=== PATIENT | female | born 1940 | race Caucasian/White ===

== ENCOUNTER 2017-08-23 16:52 | Inpatient (IN) | payer MEDICARE, OTHER ==
--- NOTE | 2017-08-23 18:20 | RAD ---
Indication: Altered mental status. Memory loss. Strokelike symptoms. Comparison: April 22, 2017 MRI. Technique: Noncontrast CT vertex of skull through foramen magnum. Report: There is seaman matter white matter obscuration at the RIGHT frontal lobe and more confluent hypodensity at the RIGHT caudate head and subjacent basal ganglia with associated mass effect with partial effacement of the frontal horn of the RIGHT lateral ventricle. Minimal partial sulcal effacement at the RIGHT frontal lobe. No additional region of seaman matter white matter obscuration evident. Negative for intra or extra-axial hemorrhage. Negative for midline shift. Patent basal cisterns. Hypodense structure at the inferior LEFT orbit corresponding with history of prior ocular surgery. Negative for fracture or suspicious focal osseous lesions. IMPRESSION: The constellation of findings is most suspicious for a subacute infarct at the RIGHT frontal lobe with involvement of the anterior limb of the internal capsule and basal ganglia including the caudate head. A mass lesion with vasogenic edema could potentially have a similar appearance. Correlate with clinical assessment and consider follow-up MRI with contrast. April 22, 2017 MRI demonstrated stigmata of advanced chronic small vessel ischemic disease without a mass lesion in the same distribution.
[2017-08-23 18:56] LABS: ABS Basophils 0.1 10^3/ul (0-0.2); ABS Eosinophils 0.1 10^3/ul (0-0.6); ABS Lymphocytes 1.9 10^3/ul (1.0-4.8); ABS Monocytes 0.7 10^3/ul (0-0.8); ABS Neutrophils 4.8 10^3/ul (1.5-7.7); ABS Nucleated RBC 0 10^3/ul; Eosinophil % 1.7 % (0-6); Hematocrit 43 % (35-47); Hemoglobin 14.7 g/dl (12.0-16.0); Lymphocyte % 25.4 % (25-47); Mean Corpuscular HGB Conc 34 g/dl (31-36); Mean Corpuscular Hemoglobin 33 pg (27-31); Mean Corpuscular Volume 95 fL (80-97); Mean Platelet Volume 9 um3 (7.4-10.4); Nucleated Red Blood Cells % 0; Platelet Count 210 10^3/ul (150-450); Red Blood Count 4.54 10^6/ul (4.0-5.4); Red Cell Distribution Width 14 % (10.5-15); White Blood Count 7.5 10^3/ul (3.5-10.8)
--- NOTE | 2017-08-23 19:06 | RAD ---
Indication: Altered mental status. History of LEFT breast cancer. Comparison: February 13, 2015 Technique: Upright AP 1735 hours Report: Elevated lung volumes and rarefaction of upper lung zone interstitial markings. Small calcified pulmonary granulomas without change. No alveolar consolidation, suspicious focal pulmonary lesion, pleural effusion, pneumothorax. The heart, pulmonary vasculature, and mediastinal contours are unremarkable. IMPRESSION: Stigmata of chronic obstructive pulmonary disease and emphysema as well as prior granulomatous disease. No acute cardiopulmonary process evident.
[2017-08-23 19:12] LABS: EGFR Non-African American 69.6 (>60)
[2017-08-23] MEDS ORDERED: Aspirin TAB* 325 MG PO ONE (20:02)
[2017-08-23] MEDS ORDERED: Gadoteridol* (CONTRAST) 279.3 MG/ML 10 ML IV ONE (21:08)
[2017-08-23] MEDS ORDERED: Albuterol HFA INHALER* 8 gm MDI INH PRN (21:11)
[2017-08-23] MEDS ORDERED: hydrALAZINE IV* 20 MG/ML VIAL IV SLOW PU PRN (21:35)
--- NOTE | 2017-08-23 21:53 | RAD ---
Indication: Mental status change/stroke like symptoms with CT remarkable for a probable subacute infarct at the RIGHT frontal lobe with involvement of the anterior limb of the internal capsule and basal ganglia including the caudate head. Comparison: Noncontrast CT of the same date. Technique: GrowBLOX [place] 1.5 Imelda [id number] with GEM suite. MRI brain without and with contrast. 12 mL ProHance administered IV. Report: Corresponding with the well demarcated hypodensity on CT there is a solitary approximate 2.8 cm AP by 2.7 cm transverse focus of restricted diffusion involving the RIGHT lentiform nucleus and caudate head of the basal ganglia and anterior limb of the internal capsule with extension to involve the anterior segment of the posterior limb of the internal capsule. Corresponding decreased signal on ADC map. Mass effect with partial compression of the frontal horn of the RIGHT lateral ventricle. Corresponding hypoenhancement in the region of the dens infarct. No enhancing lesions evident. No intra or extra-axial fluid collection evident. Severe burden of periventricular and subcortical white matter T2 hyperintensities without enhancement or mass effect most consistent with chronic small vessel ischemic disease. Patent basal cisterns. Preserved major intracranial flow-voids. Artifact at the LEFT orbit corresponding with history of previous surgery. Unremarkable calvarium and skull base. Clear paranasal sinuses and mastoid air spaces. IMPRESSION: Restricted diffusion with corresponding decreased signal on ADC map confirms a solitary subacute ischemic infarct at the RIGHT lentiform nucleus and caudate head of the basal ganglia and anterior limb of the internal capsule with extension to involve the anterior segment of the posterior limb of the internal capsule. Mass effect with partial compression of the frontal horn of the RIGHT lateral ventricle. Negative for midline shift or downward herniation.
[2017-08-24] MEDS: Heparin VIAL(*) 5000 UNITS/ML VIAL (FIVE THOUSAND) SUBCUT SCH ×4 (00:17→21:29)
--- NOTE | 2017-08-24 00:24 | HP ---
CC: Dr. Medrano * HISTORY AND PHYSICAL: DATE OF ADMISSION: 08/23/17 PRIMARY CARE PHYSICIAN: Dr. Medrano. ATTENDING PHYSICIAN: Dr. Jorge Mckay * (dictation provided by Sindy Vazquez NP) CHIEF COMPLAINT: Unusual behavior. HISTORY OF PRESENT ILLNESS: Ms. Greenberg is a 76-year-old female with a past medical history of hypertension; hyperlipidemia; mild carotid artery disease; mild coronary artery disease, treated medically, as well as asthma, who presented to the hospital today with concern for unusual behavior per her 's report. On questioning, Ms. Greenberg states that her only symptoms have been that she has been more tired than usual. She feels that this started all about 10 days ago, but became much more acutely worse over the past 3 days. Per her 's report, however, her behavior has been very unusual for her. He notes that she is very precise and likes things done in a very specific way. 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 She does all the finances for the home. She is always precise with timing for appointments and is very meticulous. However, over the past 3 days, she suddenly became very scattered. She missed several appointments and was late. She was not following up with the finances and also was very "laid-back" and not concerned about how the house was arranged. Again, this was an unusual behavior and Mr. Greenberg became concerned that perhaps she had a stroke. There was no evidence of any weakness or other physical abnormality per them. They reviewed this with Dr. Medrano and Dr. Delgado's office and ultimately he was able to convince his to come to the hospital for evaluation. In the emergency room, Ms. Greenberg had a CT which showed concern for a right frontal lobe likely stroke, less likely mass with vasogenic edema. Her labs were unremarkable. Her vital signs show that she is mildly tachycardic, hypertensive with her blood pressure running into the 170s. PAST MEDICAL HISTORY: 1. Hypertension. 2. Hyperlipidemia. 3. Carotid artery disease, mild. 4. Coronary artery disease, mild. 5. Asthma. 6. History of breast cancer, status post lobectomy. 7. GERD. 8. History of inguinal hernia repair. MEDICATIONS: As outpatient are: 1. Budesonide/formoterol 160/4.5 two puffs inhaled b.i.d. 2. Simethicone 180 mg p.o. daily p.r.n. 3. Albuterol inhaler 1 puffs inhaled q.4 hours p.r.n. 4. Atorvastatin 10 mg at bedtime. 5. Calcium carbonate 500 mg p.o. b.i.d. 6. Candesartan 4 mg p.o. daily. 7. Diltiazem 120 mg p.o. daily. 8. Montelukast 10 mg p.o. daily. 9. Multivitamin with mineral 1 tab p.o. daily. 10. Tiotropium 1 cap inhaled daily. ALLERGIES: AMOXICILLIN, AZITHROMYCIN, CLAVULANIC ACID, OXYCODONE, and SULFA. FAMILY HISTORY: Reviewed and noncontributory. SOCIAL HISTORY: No reported tobacco use. The patient drinks about 5 glasses of wine per week. No reported drug use. She lives with her who is her healthcare proxy. She is a retired [employer] employee. REVIEW OF SYSTEMS: A 14-point review of systems was completed with Ms. Greenberg and all those mentioned above were negative except for the fact the patient mentioned that she had some pain in the left side of her neck posteriorly that resolved with a hot shower and Tylenol. No reported headache. PHYSICAL EXAMINATION GENERAL: Ms. Greenberg is sitting in the bed, she is in no acute distress. VITAL SIGNS: Temperature 99.4, pulse rate 56, respiratory rate 19, O2 saturation 95% on room air, and blood pressure 164/67. LUNGS: Clear to auscultation bilaterally. No accessory muscle use and good aeration. HEART: S1 and S2. No murmur, rub, or gallop, and regular. ABDOMEN: Soft and nontender with bowel sounds present x4. EXTREMITIES: No cyanosis or edema. NEURO: She is alert, she is oriented x3. She moves all extremities equally. There is no facial asymmetry or focal weakness. Extraocular movements intact. No ataxia is noted on exam. No nystagmus is noted on exam. SKIN: Intact. DIAGNOSTIC STUDIES/LAB DATA: Sodium 139, potassium 4.3, chloride 103, serum bicarbonate 31, BUN 13, creatinine 0.80, glucose 98, lactic acid 1.1. WBC 7.5, hemoglobin 14.7, hematocrit 43, platelet count 210. EKG shows a sinus rhythm with a heart rate of about 60 with no evidence of ischemia. CT brain shows "the constellation of findings is most suspicious for a subacute infarct at the right frontal lobe with involvement of the anterior limb of the internal capsule and basal ganglia including caudate head. The mass lesion with vasogenic edema could potentially have a similar appearance. Correlate with clinical assessment and consider followup MRI." Chest x-ray shows stigmata of COPD and emphysema and prior granulomatous disease. No acute process. ASSESSMENT AND PLAN: Ms. Greenberg is a 76-year-old female with a past medical history of hypertension, hyperlipidemia, and mild carotid as well as coronary artery disease, who presented to the hospital today with report of unusual scattered less focused behavior per her , found to have subacute infarct in the right frontal lobe versus possible mass with vasogenic edema. The plans are for inpatient admission as expected length of stay would be greater than 2 days for the followin. Altered mental status. Ms. Greenberg is appropriate today, although I appreciate the report received from her that she is acting unusually. There is no neurological deficit noted on my examination. She does have a CT scan as mentioned above. Our plans will be for MRI which has been obtained, but the read is pending. We will continue for now with a stroke workup as it seems this is the most likely diagnosis based on the CT. Plan to monitor on telemetry and the patient will have a transthoracic echocardiogram. She does have a history of hypertension and hyperlipidemia. Plan to continue with blood pressure medication to allow for permissive hypertension with blood pressure up to 180. She will have hydralazine as needed. and continue her home medications. Also plan to continue to treat with statin and aspirin. She will be seeing Dr. Goodwin tomorrow for a neurological consultation. 3. History of hypertension. Continue diltiazem. The patient's is going to bring in candesartan tomorrow. She will have hydralazine as needed. 4. History of asthma. The patient reports she has not been using her albuterol inhaler at all. We will continue her home medications. There is no evidence of acute exacerbation. 5. Code status. Full code. 6. DVT prophylaxis. Heparin subcu. 7. Disposition. To telemetry floor. TIME SPENT: About 60 minutes was spent on the admission of this patient, more than half the time spent with the patient at the bedside reviewing the events leading up to this hospitalization, performing the physical examination, and reviewing my plan of care. SINDY VAZQUEZ NP [id number]/[facility] #: [id number] LEXIS
[2017-08-24] MEDS: Tiotropium CAP.INH* CAP.INH/18 MCG (USE ORDER SET !) INH SCH (07:35)
[2017-08-24] MEDS: Valsartan TAB* 40 MG PO SCH (08:36)
[2017-08-24] MEDS: Diltiazem CD CAP* 120 MG PO SCH (08:37)
[2017-08-24] MEDS: Calcium Carbonate CHEW TAB* 500 MG (TUMS) PO SCH ×2 (08:37→21:28)
[2017-08-24] MEDS: Montelukast Sodium TAB* 10 MG PO SCH (08:37)
[2017-08-24] MEDS: Multivitamins/Minerals TAB PO SCH (08:37)
[2017-08-24] MEDS ORDERED: Spiriva Inhaler DEVICE* 1 EACH DEVICE INH ONE (09:00)
[2017-08-24] MEDS ORDERED: Aspirin TAB* 325 MG PO SCH (09:00)
--- NOTE | 2017-08-24 09:39 | PN ---
Subjective Date of Service: 08/24/17 Interval History: Patient seen and examined at bedside. Denies fever, chills, shortness of breath , chest discomfort, N/V/D. Pt denies focal weakness, but feels "shaky". Tele: Sinus julien, rate 50's with PVCs. Family History: Unchanged from Admission Social History: Unchanged from Admission Past Medical History: Unchanged from Admission Objective Active Medications: Albuterol (Ventolin Hfa Inhaler*) 1 puff INH Q4H PRN Reason: SOB/WHEEZING Aspirin (Aspirin Tab*) 325 mg PO DAILY ROMAN Atorvastatin Calcium (Lipitor*) 10 mg PO BEDTIME ROMAN Calcium Carbonate (Tums*) 500 mg PO BID ROMAN Diltiazem HCl (Cardizem Cd Cap*) 120 mg PO DAILY ROMAN Heparin Sodium (Porcine) (Heparin Vial(*)) 5,000 units SUBCUT Q8HR ROMAN Hydralazine HCl (Apresoline Iv*) 5 mg IV SLOW PU Q6H PRN Reason: SBP > 185 Montelukast Sodium (Singulair Tab*) 10 mg PO DAILY ROMAN Multivitamins/Minerals (Theragran/Minerals Tab*) 1 tab PO DAILY ROMAN Tiotropium [place] (Spiriva Cap.Inh*) 1 cap INH DAILY ROMAN Valsartan (Diovan Tab*) 20 mg PO DAILY ROMAN Vital Signs - 8 hr 08/24/17 08/24/17 08/24/17 04:04 04:11 07:30 Temperature 97.6 F 97.8 F Pulse Rate 50 52 Respiratory 18 18 Rate Blood Pressure 179/76 164/86 187/81 (mmHg) O2 Sat by Pulse 94 96 Oximetry 08/24/17 08/24/17 08/24/17 07:35 08:00 09:28 Temperature Pulse Rate 80 Respiratory 16 Rate Blood Pressure 153/72 (mmHg) O2 Sat by Pulse Oximetry Oxygen Devices in Use Now: None Appearance: NAD, sitting up in bed Ears/Nose/Mouth/Throat: Mucous Membranes Moist Respiratory: Symmetrical Chest Expansion and Respiratory Effort, Clear to Auscultation Cardiovascular: NL Sounds; No Murmurs; No JVD, RRR Abdominal: NL Sounds; No Tenderness; No Distention Extremities: No Edema Skin: No Rash or Ulcers Neurological: Alert and Oriented x 3, NL Muscle Strength and Tone, - - Smile symmetric, tongue midline, hand display director equal Lines/Tubes/Other Access: Clean, Dry and Intact Peripheral IV - site benign Nutrition: Taking PO's Result Diagrams: 08/23/17 18:39 08/23/17 18:39 Diagnostic Imaging: Brain CT 08/23/17 - IMPRESSION: The constellation of findings is most suspicious for a subacute infarct at the RIGHT frontal lobe with involvement of the anterior limb of the internal capsule and basal ganglia including the caudate head. A mass lesion with vasogenic edema could potentially have a similar appearance. Correlate with clinical assessment and consider follow-up MRI with contrast. April 22, 2017 MRI demonstrated stigmata of advanced chronic small vessel ischemic disease without a mass lesion in the same distribution. MRI Brain 08/23/17 - IMPRESSION: Restricted diffusion with corresponding decreased signal on ADC map confirms a solitary subacute ischemic infarct at the RIGHT lentiform nucleus and caudate head of the basal ganglia and anterior limb of the internal capsule with extension to involve the anterior segment of the posterior limb of the internal capsule. Mass effect with partial compression of the frontal horn of the RIGHT lateral ventricle. Negative for midline shift or downward herniation. Assess/Plan/Problems-Billing Assessment: Ms. Greenberg is a 76 yo female with PMH significant for HTN, HLD, mild carotid and coronary artery disease who presented to the hospital with behavior changes and was found to have a subacute infarct in the right frontal lobe vs possible mass with vasogenic edema. - Patient Problems (1) CVA (cerebral vascular accident) Code(s): I63.9 - CEREBRAL INFARCTION, UNSPECIFIED SNOMED Code(s): 002819132 Comment: - MRI - Subacute ischemic infarct with mass effect with partial compression of the frontal horn of the RIGHT lateral ventricle - Neurology consult, pending - Echo pending - Continue neuro checks - Continue ASA and statin (2) HTN (hypertension) Code(s): I10 - ESSENTIAL (PRIMARY) HYPERTENSION SNOMED Code(s): 32520389 Comment: - SBP 100-180's - Continue diltiazem and candesartan ([facility] autosub) - Continue Hydralazine PRN (3) Asthma Code(s): J45.909 - UNSPECIFIED ASTHMA, UNCOMPLICATED SNOMED Code(s): 539152694 Comment: - No signs of acute exacerbation - Continue albuterol PRN, spiriva, and montelukast (4) HLD (hyperlipidemia) Code(s): E78.5 - HYPERLIPIDEMIA, UNSPECIFIED SNOMED Code(s): 10154796 Comment: - Check fasting lipids in the AM - Continue Statin (5) CAD (coronary artery disease) Code(s): I25.10 - ATHSCL HEART DISEASE OF [place] CORONARY ARTERY W/O ANG PCTRS SNOMED Code(s): 93156565 Comment: - Continue statin and ASA (6) GERD (gastroesophageal reflux disease) Code(s): K21.9 - GASTRO-ESOPHAGEAL REFLUX DISEASE WITHOUT ESOPHAGITIS SNOMED Code(s): 512670357 Comment: (7) DVT prophylaxis Code(s): AJM5793 - SNOMED Code(s): 335643566 Comment: - Continue Heparin SQ (8) Full code status Code(s): Z78.9 - OTHER SPECIFIED HEALTH STATUS SNOMED Code(s): 938508731 Status and Disposition: Inpatient. Discharge to home when medically stable.
--- NOTE | 2017-08-24 15:49 | ECHO ---
Patient: VALERIE WHEELER [facility] Rec#: [id number] : 1940 Date: 08/24/2017 Age: 76y Height: 167.64 cm / 66.0 in Weight: 61.23 kg / 135.0 lbs Sex: F BSA: 1.69 Room#: 436 Admit Date#: 08/23/2017 Type: Inpatient Referring: Chandni Monzon NP Reading: Marbella Delgado MD Plant Mechanic: Chandni Hull RDCS CC: Rory Medrano MD Transthoracic Echocardiogram Indication: CVA BP: 164/86 HR: 54 Rhythm: Bradycardia Findings History: Mild CAD, HTN, HLD, asthma. Technical Comments: The study quality is fair. Completed at 1415. Left Ventricle: The left ventricular chamber size is normal. There is no left ventricular hypertrophy. Global left ventricular wall motion and contractility are within normal limits. There is normal left ventricular systolic function. The estimated ejection fraction is 55-60%. There is no consistent Doppler evidence of clinically significant diastolic dysfunction. Left Atrium: The left atrium is mildly dilated. Right Ventricle: Moderator Band present. The right ventricular cavity size is normal. The right ventricular global systolic function is normal. Right Atrium: The right atrial cavity size is normal. Interatrial septum appears intact without evidence of shunting. The bubble study is negative. A patent foramen ovale is not demonstrated with color Doppler and agitated contrast. Aortic Valve: The aortic valve is trileaflet. The aortic valve leaflets are mildly thickened. There is no evidence of aortic stenosis. Mitral Valve: The mitral valve leaflets do not appear thickened. There is a trace of mitral regurgitation. There is no evidence of mitral stenosis. Tricuspid Valve: The tricuspid valve leaflets are normal. There is trace tricuspid regurgitation. Unable to estimate the right ventricular systolic pressure. There is no tricuspid stenosis. Pulmonic Valve: The pulmonic valve appears normal. There is a trace pulmonic regurgitation. There is no pulmonic stenosis. Pericardium: There is no significant pericardial effusion. Aorta: There is no dilatation of the ascending aorta. There is no dilatation of the aortic arch. The aortic root is normal in size. Pulmonary Artery: The main pulmonary artery is not well visualized. Venous: The inferior vena cava appears normal in size. There is a greater than 50% respiratory change in the inferior vena cava dimension. Contrast: Normal saline was used as contrast for the bubble study. Intravenous contrast was used to help determine presence of intracardiac shunting. Conclusions Global left ventricular wall motion and contractility are within normal limits. The estimated ejection fraction is 55-60%. The right ventricular global systolic function is normal. Interatrial septum appears intact without evidence of shunting, bubble study is negative. The aortic valve leaflets are mildly thickened with normal function. There is a trace of mitral regurgitation. There is trace tricuspid regurgitation. Unable to estimate the right ventricular systolic pressure. Compared with prior echo of 07/15/14, stable. Measurements Name Value Normal Range RVIDd (AP) 2D 2.7 cm (0.9 - 2.6) RVDdMajor (2D) 3.8 cm (2.2 - 4.4) RAd ISD 4CH 4.7 cm (3.4 - 4.9) RA (A4C)W 3.8 cm (2.9 - 4.6) IVSd (2D) 0.9 cm (0.6 - 1) LVPWd (2D) 0.7 cm (0.6 - 1) LVIDd (2D) 3.6 cm (3.6 - 5.4) LVIDs (2D) 2.3 cm - LV FS (2D) 34 % (25 - 45) Aortic Annulus 1.7 cm (1.4 - 2.6) Ao root diameter (2D) 2.9 cm (2.1 - 3.5) Ascending Ao 2.8 cm (2.1 - 3.4) Aortic arch 1.9 cm (1.8 - 3.4) LA dimension (AP) 2D 2.8 cm (2.3 - 3.8) LAd ISD 4CH 5.9 cm (2.9 - 5.3) LA ISD 4CH W 3.6 cm (2.5 - 4.5) Name Value Normal Range LA ESV SP 4CH (A/L) 53 ml - LA ESV SP 2CH (A/L) 58 ml - LA ESV BP (A/L) 57 ml - LA ESV BP (A/L) index 33 ml/m2 - LA ESV SP 4CH (MOD) 50 ml - LA ESV SP 2CH (MOD) 56 ml - Name Value Normal Range MV E-wave Vmax 0.7 m/sec - MV deceleration time 289.7 msec - MV A-wave Vmax 0.73 m/sec - MV E:A ratio 0.98 ratio - LV septal e' Vmax 0.08 m/sec - LV lateral e' Vmax 0.1 m/sec - LV E:e' septal ratio 8.75 ratio - LV E:e' lateral ratio 7 ratio - Name Value Normal Range AV Vmax 1.5 m/sec - AV VTI 30.72 cm - AV peak gradient 8.88 mmHg - AV mean gradient 4.66 mmHg - LVOT Vmax 1.1 m/sec - LVOT VTI 21.24 cm - LVOT peak gradient 4.79 mmHg - LVOT mean gradient 2.46 mmHg - BERTHA Vmax 0.53 m/sec - Name Value Normal Range IVC diameter 1.9 cm - Name Value Normal Range PV Vmax 0.84 m/sec - PV peak gradient 2.87 mmHg -
[2017-08-24] MEDS ORDERED: Iohexol 350* (CONTRAST) 500 ML MDV IV ONE (18:36)
[2017-08-24] MEDS ORDERED: Atorvastatin* 10 MG TAB PO SCH (21:00)
--- NOTE | 2017-08-24 23:14 | CONS ---
NEUROLOGY CONSULTATION: DATE OF CONSULT: 08/24/17 REQUESTING PROVIDER: Sindy Vazquez NP REASON FOR CONSULT: Right frontal stroke. 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 Apparently, she is typically very precise and like things done in a specific way. She is typically very on time for appointments and on top of what needs to be done. Over the past several days, she became scattered, missing several appointments and was late to others. She was not following up with her finances as she normally does and seemed less concerned about how her home is kept. All of this was very out of character for her. She also states that she felt more fatigued in general but had attributed this to having a busy weekend watching [employer]. After consulting with Dr. Delgado's office, it was recommended that she come to the hospital for evaluation. A CT scan of the brain suggested the presence of a subacute ischemic infarction involving the right subcortical frontal region with some associated mass effect. There was some question as to whether this could be an underlying mass and so I recommended following this up with an MRI scan of the brain with and without contrast. Today, she states that she feels pretty well and is feeling better, which she attributes to being up and moving around the unit. She denies any past history of stroke. She denies any episodes of weakness or numbness in her extremities, no facial asymmetry, no speech difficulties, no swallowing problems and no balance difficulties. She has had no recent vision changes either. PAST MEDICAL HISTORY: 1. Hypertension. 2. Hyperlipidemia. 3. Carotid artery disease. 4. Coronary artery disease. 5. Asthma. 6. History of lumpectomy. 7. GERD. 8. Hernia repair. 9. History of eye surgery. HOME MEDICATIONS: 1. Aspirin 81 mg daily. 2. Diltiazem 120 mg daily. 3. Spiriva. 4. Simethicone. 5. Multivitamins. 6. Singulair 10 mg daily. 7. Candesartan 4 mg daily. 8. Calcium carbonate 500 mg twice daily. 9. Symbicort twice daily. 10. Lipitor 10 mg at bedtime. 11. Ventolin as needed. ALLERGIES: AMOXICILLIN, AZITHROMYCIN, CLAVULANIC ACID, OXYCODONE, and SULFA. FAMILY HISTORY: Her mother reportedly of a brain hemorrhage in her 40s. The patient thinks that she had an aneurysm. Her father had hypertension and of myocardial infarction. SOCIAL HISTORY: She is a nonsmoker. Drinks about 5 glasses of wine per week. She lives with her . REVIEW OF SYSTEMS: A 14-point review was otherwise negative aside from that mentioned in the HPI. PHYSICAL EXAMINATION: Vital Signs: Temperature 98.1, blood pressure 170/71, heart rate 55, oxygen saturation 95% on room air. On general examination, she is a pleasant woman, in no acute distress. When I initially entered the room, she was ambulating to the bookcase to retrieve her purse and her balance appeared normal. Her cardiac exam shows a regular rate and rhythm with no murmurs, rubs, or gallops. Lungs are clear to auscultation bilaterally. There are no carotid bruits. Her skin is intact. There is no joint swelling or erythema. On neurologic examination, she is fully awake, alert, and oriented. She was able to read the stroke cards without difficulty. She had no naming difficulties. On cranial nerve exam, pupils are equal, round, and reactive from 3 to 2 mm bilaterally. Versions are full without nystagmus. Doherty are full to confrontation. Facial sensation and musculature is full and symmetric. Hearing is intact to finger rub. The palate elevates symmetrically. The tongue is midline. On motor examination, she has normal bulk and tone in the upper and lower extremities. Strength is full proximally and distally with no pronator drift. Sensation is intact to light touch and temperature in the upper and lower extremities. [id number]-[id number] and [id number]-ax-[id number] are without ataxia. Reflexes are 2+ in the upper extremities, 1+ at the knees, absent ankles with downgoing toes. LABORATORY DATA/DIAGNOSTIC STUDIES: Her CBC is overall unremarkable as is her CMP. Her fasting lipid profile is pending. Brain CT was personally reviewed, which shows an area of hypodensity involving the right caudate head as well as the basal ganglia with some associated mass effect on the right frontal horn, but there is no midline shift. Followup MRI scan confirmed this to be an area of subacute stroke, which was DWI bright and dark on the ADC map, which dates it to within the past 2 weeks. In addition to this, she has evidence of good amount of small vessel ischemic disease including in the brain stem and subcortical white matter bilaterally. IMPRESSION: Namrata Greenberg is a 76-year-old woman with vascular risk factors including coronary artery disease, hypertension, hyperlipidemia, on aspirin 81 mg daily who presented subacutely with a right frontal subcortical stroke. This presented only with behavioral changes and she has no hemiparesis or other focal neurologic deficits as a result of the stroke. She has been admitted for stroke workup. She has had echocardiogram and the result is pending. She has lipid profile ordered and I have added a hemoglobin A1c. She is going to have a carotid ultrasound, which I have also ordered. She remains on telemetry. At this point, I will discontinue her aspirin and change her over to clopidogrel given that she was taking aspirin prior to her admission. Thank you for this consultation. [id number]/[facility] #: [id number] LEXIS
[2017-08-25] MEDS: Heparin VIAL(*) 5000 UNITS/ML VIAL (FIVE THOUSAND) SUBCUT SCH ×2 (05:30→14:24)
--- NOTE | 2017-08-25 08:12 | RAD ---
HISTORY: Stroke COMPARISONS: Head CT dated August 23, 2017. TECHNIQUE: Multiple contiguous axial CT scans were obtained of the head and neck after the administration of nonionic intravenous contrast timed to the systemic arterial phase of contrast enhancement. Coronal and sagittal multiplanar reformations are submitted for review. Multiple 3-D maximum intensity projection reconstructions are also submitted for review. FINDINGS: CTA NECK: AORTIC ARCH: The aortic arch is not completely visualized within the [id number] the current examination. There is no proximal stenosis of the cephalic great vessels. RIGHT VERTEBRAL ARTERY: The right vertebral artery is patent along its course, without stenosis. LEFT VERTEBRAL ARTERY: The left vertebral artery is patent along its course, without stenosis. DOMINANCE: The right vertebral artery is dominant. RIGHT COMMON CAROTID ARTERY: The right common carotid artery is patent. The right carotid bifurcation occurs at C4-C5 RIGHT INTERNAL CAROTID ARTERY: There is atheromatous disease of the right carotid bifurcation, without right internal carotid artery stenosis by NASCET criteria. RIGHT EXTERNAL CAROTID ARTERY: The right external carotid artery is unremarkable. LEFT COMMON CAROTID ARTERY: The left common carotid artery is patent. The left carotid bifurcation occurs at C5-C6 LEFT INTERNAL CAROTID ARTERY: There is no left internal carotid artery stenosis by NASCET criteria. LEFT EXTERNAL CAROTID ARTERY: The left external carotid artery is unremarkable. VENOUS CIRCULATION: The venous system is unremarkable. SALIVARY GLANDS: The parotid glands, submandibular glands, sublingual glands are normal. NASAL CAVITY/NASOPHARYNX: The nasal cavity and nasopharynx are normal. ORAL CAVITY/OROPHARYNX: The oral cavity is obscured by streak artifact from dental amalgam. The visualized oral cavity and oropharynx are unremarkable. LARYNGEAL APPARATUS/HYPOPHARYNX: The laryngeal apparatus and hypopharynx are normal. UPPER AIRWAY/UPPER ESOPHAGUS: The visualized upper airway and esophagus are normal. LUNG APICES: The lung apices are clear. THYROID GLAND: The thyroid gland is normal. LYMPH NODES: There is no lymphadenopathy by size criteria. BONES AND SOFT TISSUES: Degenerative changes are noted of the spine. 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 CTA HEAD: INTRACRANIAL CIRCULATION: There is no aneurysm, vascular malformation, occlusion, or stenosis of the visualized intracranial circulation. The anterior communicating artery complex is diminutive. Bilateral posterior communicating arteries are identified. VENOUS CIRCULATION: A linear defect in the left transverse sinus is felt to represent mixing artifact from the phase of contrast administration. PERFUSION: There is no obvious parenchymal perfusion deficit. HEMORRHAGE/INFARCT: There is hypoattenuation of the right lentiform nuclei extending to the caudate head consistent with subacute nonhemorrhagic infarct as noted on the previous examination. Elsewhere, there is no hemorrhage or acute infarct. MASSES/SHIFT: There is no mass or shift. EXTRA-AXIAL SPACES: There are no extra-axial fluid collections. SULCI AND VENTRICLES: The sulci and ventricles are normal in size and position for the patient's stated age. CEREBRUM: There is hypoattenuation of the periventricular and subcortical white matter. BRAINSTEM: There are no focal parenchymal abnormalities. CEREBELLUM: There are no focal parenchymal abnormalities. PARANASAL SINUSES: The paranasal sinuses are clear. ORBITS: The patient is status post scleral banding on the left. BONES AND SOFT TISSUE: No bone or soft tissue abnormalities are noted. OTHER: There is no abnormal enhancement. IMPRESSION: 1. SUBACUTE NONHEMORRHAGIC INFARCT OF THE RIGHT BASAL GANGLIA. 2. ATHEROSCLEROSIS. 3. NO INTERNAL CAROTID ARTERY STENOSIS BY NASCET CRITERIA. 4. NO ANEURYSM, VASCULAR MALFORMATION, OCCLUSION, OR STENOSIS OF THE VISUALIZED INTRACRANIAL CIRCULATION.. CPT II Codes: 3100F
[2017-08-25] MEDS: Tiotropium CAP.INH* CAP.INH/18 MCG (USE ORDER SET !) INH SCH (08:35)
[2017-08-25] MEDS: Valsartan TAB* 40 MG PO SCH (09:00)
[2017-08-25] MEDS ORDERED: Clopidogrel TAB* 75 MG PO SCH (09:00)
[2017-08-25] MEDS: Calcium Carbonate CHEW TAB* 500 MG (TUMS) PO SCH (09:01)
[2017-08-25] MEDS: Diltiazem CD CAP* 120 MG PO SCH (09:01)
[2017-08-25] MEDS: Multivitamins/Minerals TAB PO SCH (09:01)
[2017-08-25] MEDS: Montelukast Sodium TAB* 10 MG PO SCH (09:02)
[2017-08-25 16:10] VITALS: BP 125/70
--- NOTE | 2017-08-25 16:23 | PN ---
Subjective Date of Service: 08/25/17 Interval History: Patient seen and examined at bedside. Denies fever, chills, shortness of breath , chest discomfort, N/V/D. Pt states that she is feeling well. Tele: Sinus Maurizio to sinus rhythm, rate 50's. Pt noted to have a short burst of SVT earlier today. Family History: Unchanged from Admission Social History: Unchanged from Admission Past Medical History: Unchanged from Admission Objective Active Medications: Albuterol (Ventolin Hfa Inhaler*) 1 puff INH Q4H PRN Reason: SOB/WHEEZING Atorvastatin Calcium (Lipitor*) 20 mg PO BEDTIME ROMAN Calcium Carbonate (Tums*) 500 mg PO BID ROMAN Clopidogrel Bisulfate (Plavix Tab*) 75 mg PO DAILY ROMAN Diltiazem HCl (Cardizem Cd Cap*) 120 mg PO DAILY ROMAN Heparin Sodium (Porcine) (Heparin Vial(*)) 5,000 units SUBCUT Q8HR ROMAN Hydralazine HCl (Apresoline Iv*) 5 mg IV SLOW PU Q6H PRN Reason: SBP > 185 Montelukast Sodium (Singulair Tab*) 10 mg PO DAILY ROMAN Multivitamins/Minerals (Theragran/Minerals Tab*) 1 tab PO DAILY ROMAN Tiotropium Walker (Spiriva Cap.Inh*) 1 cap INH DAILY ROMAN Valsartan (Diovan Tab*) 20 mg PO DAILY ROMAN Vital Signs - 8 hr 08/25/17 08/25/17 11:43 15:51 Temperature 98.8 F 98.6 F Pulse Rate 52 56 Respiratory 18 16 Rate Blood Pressure 153/72 125/70 (mmHg) O2 Sat by Pulse 94 96 Oximetry Oxygen Devices in Use Now: None Appearance: NAD, laying in bed Ears/Nose/Mouth/Throat: Mucous Membranes Moist Respiratory: Symmetrical Chest Expansion and Respiratory Effort, Clear to Auscultation Cardiovascular: NL Sounds; No Murmurs; No JVD, RRR Abdominal: NL Sounds; No Tenderness; No Distention Extremities: No Edema Skin: No Rash or Ulcers Neurological: Alert and Oriented x 3, NL Muscle Strength and Tone Lines/Tubes/Other Access: Clean, Dry and Intact Peripheral IV - site benign Nutrition: Taking PO's Result Diagrams: 08/23/17 18:39 08/23/17 18:39 Diagnostic Imaging: Brain CT 08/23/17 - IMPRESSION: The constellation of findings is most suspicious for a subacute infarct at the RIGHT frontal lobe with involvement of the anterior limb of the internal capsule and basal ganglia including the caudate head. A mass lesion with vasogenic edema could potentially have a similar appearance. Correlate with clinical assessment and consider follow-up MRI with contrast. April 22, 2017 MRI demonstrated stigmata of advanced chronic small vessel ischemic disease without a mass lesion in the same distribution. MRI Brain 08/23/17 - IMPRESSION: Restricted diffusion with corresponding decreased signal on ADC map confirms a solitary subacute ischemic infarct at the RIGHT lentiform nucleus and caudate head of the basal ganglia and anterior limb of the internal capsule with extension to involve the anterior segment of the posterior limb of the internal capsule. Mass effect with partial compression of the frontal horn of the RIGHT lateral ventricle. Negative for midline shift or downward herniation. CTA HEAD 08/24/17 - IMPRESSION: SUBACUTE NONHEMORRHAGIC INFARCT OF THE RIGHT BASAL GANGLIA. ATHEROSCLEROSIS. NO INTERNAL CAROTID ARTERY STENOSIS BY NASCET CRITERIA. NO ANEURYSM, VASCULAR MALFORMATION, OCCLUSION, OR STENOSIS OF THE VISUALIZED INTRACRANIAL CIRCULATION. Assess/Plan/Problems-Billing Assessment: Ms. Greenberg is a 76 yo female with PMH significant for HTN, HLD, mild carotid and coronary artery disease who presented to the hospital with behavior changes and was found to have a subacute infarct in the right frontal lobe vs possible mass with vasogenic edema. - Patient Problems (1) CVA (cerebral vascular accident) Code(s): I63.9 - CEREBRAL INFARCTION, UNSPECIFIED SNOMED Code(s): 359496275 Comment: - MRI - Subacute ischemic infarct with mass effect with partial compression of the frontal horn of the RIGHT lateral ventricle - Neurology consult, input appreciated - Echo with no significant findings - Head/neck CTA with no significant findings - Continue plavix and statin (increased) (2) HTN (hypertension) Code(s): I10 - ESSENTIAL (PRIMARY) HYPERTENSION SNOMED Code(s): 62880880 Comment: - SBP 120-150's - Continue diltiazem and candesartan ([employer] autosub) (3) Asthma Code(s): J45.909 - UNSPECIFIED ASTHMA, UNCOMPLICATED SNOMED Code(s): 366200005 Comment: - No signs of acute exacerbation - Continue albuterol PRN, spiriva, and montelukast (4) HLD (hyperlipidemia) Code(s): E78.5 - HYPERLIPIDEMIA, UNSPECIFIED SNOMED Code(s): 33775756 Comment: - LDL 87, cholesterol 160 - Continue increase statin to 40 mg daily (5) CAD (coronary artery disease) Code(s): I25.10 - ATHSCL HEART DISEASE OF [place] CORONARY ARTERY W/O ANG PCTRS SNOMED Code(s): 81122991 Comment: - Continue statin and plavix (6) GERD (gastroesophageal reflux disease) Code(s): K21.9 - GASTRO-ESOPHAGEAL REFLUX DISEASE WITHOUT ESOPHAGITIS SNOMED Code(s): 251696576 Comment: (7) DVT prophylaxis Code(s): OEP2360 - SNOMED Code(s): 345343540 Comment: (8) Full code status Code(s): Z78.9 - OTHER SPECIFIED HEALTH STATUS SNOMED Code(s): 172877840 Status and Disposition: Inpatient. Stable for discharge to home today.
[2017-08-25] MEDS ORDERED: Atorvastatin* 20 MG TAB PO SCH (21:00)
--- NOTE | 2017-08-26 08:44 | PN ---
FOLLOWUP NOTE: DATE OF FOLLOWUP: 08/25/17 LOCATION: The patient is an inpatient. HISTORY: No acute overnight events. I discussed the patient with Dr. Delgado yesterday afternoon and found that the results of the carotid ultrasound that the patient and had told me about done in Dr. Delgado's office and [place] [facility] [place] why [place] be located in her hospital medical record. Therefore, a CT angiogram of the head and neck was ordered for further evaluation, especially given her past complaints of pulsatile tinnitus. Today, Ms. Greenberg says that she feels well and has had no changes in her clinical status. MEDICATIONS: 1. Lipitor 10 mg at bedtime. 2. Tums 500 mg twice daily. 3. Clopidogrel 75 mg daily. 4. Cardizem 120 mg daily. 5. Heparin 5000 units q. 8 hours. 6. Singulair 10 mg daily. 7. Multivitamin 1 tablet daily. 8. Spiriva 1 capsule daily. 9. Diovan 20 mg daily. PHYSICAL EXAMINATION: Vital Signs: Temperature 97.3, blood pressure 154/72, heart rate 50, oxygen saturation 95% on room air. Ms. Greenberg was lying comfortably in her bed, in no acute distress. Her speech is fluent without dysarthria or aphasia. Her face is symmetric. There is full strength in her face. Versions are full without nystagmus. Doherty are full to threat. There is full strength in her extremities with no pronator drift, though I did note that with outstretched hands she had some athetotic movements of her fingers of the left hand. Sensation is intact to light touch on review of her lower extremities. There is no ataxia on vlgjln-ko-tisp testing. DATA: Her hemoglobin A1c is 5.9%. Fasting lipid profile showed triglycerides 82, total cholesterol 160, LDL 87, HDL 56.4. CT angiogram showed no hemodynamically significant stenosis in the anterior or posterior circulation and no evidence for aneurysm or occlusion. However, there was some atheromatous change at the bifurcation on the right including some calcification, but there was no clearly unstable portion of this plaque and again it did not yield any hemodynamically significant stenosis. Her transthoracic echocardiogram showed no wall motion abnormalities and a normal ejection fraction of 55% to 60%. There is no left ventricular hypertrophy. The left atrium is mildly dilated. There is no PFO visualized. IMPRESSION: Namrata Greenberg is a 76-year-old woman, who came in subacutely with a right frontal subcortical infarction, which has primarily presented with behavioral changes and she continues to demonstrate no focal deficits on her neurologic exam. Her workup at this point is essentially complete, though her CTA does show some atheromatous change of the right carotid bifurcation, there is no indication for surgery at this point since there does not appear to be any unstable plaque and there is no hemodynamically significant stenosis produced by this atherosclerosis. She has been switched over to Plavix and now increased her statin to 20 mg. She should follow up with her PCP on discharge and Dr. Delgado as previously scheduled and she can also follow up with me in about 4 weeks. [id number]/[facility] #: [id number] L[place]IS
--- NOTE | 2017-08-27 16:53 | DS ---
CC: Little Goodwin MD; Rory Medrano MD* DISCHARGE SUMMARY: DATE OF ADMISSION: 08/23/17 DATE OF DISCHARGE: 08/25/17 ATTENDING PHYSICIAN: Diane Fish MD* (dictated by Chandni Dodge NP). PRIMARY CARE PROVIDER: Rory Medrano MD PRIMARY DIAGNOSES: 1. Right frontal cerebrovascular accident. 2. Hyperlipidemia. SECONDARY DIAGNOSES: 1. Hypertension. 2. Asthma. 3. History of coronary artery disease. 4. Gastroesophageal reflux disease. CONSULTATIONS WHILE IN THE HOSPITAL: Dr. Little Goodwin with Neurology. STUDIES WHILE IN THE HOSPITAL: 1. Brain CT on 08/23/17. Radiologist's impression: The consolidation of findings is most suspicious for a subacute infarct at the right frontal lobe with involvement of the anterior limb of the internal capsule and basal ganglia including the caudate head. A mass lesion with vasogenic edema could potentially have a similar appearance. Correlate with clinical assessment and consider followup MRI with contrast. 04/22/17 MRI demonstrated stigmata of advanced chronic small vessel ischemic disease without a mass lesion in the same distribution. 2. Chest x-ray on 08/23/17. Radiologist's impression: Stigmata of chronic obstructive pulmonary disease and emphysema as well as prior granulomatous disease. No acute cardiopulmonary process evident. 3. Brain MRI on 08/23/17. Radiologist's impression: Restricted diffusion with corresponding decreased signal on ADC map confirms a solitary subacute ischemic infarct at the right lentiform nucleus and caudate head of the basal ganglia and anterior limb of the internal capsule with extension to involve the anterior segment of the posterior limb of the internal capsule. Mass effect with partial compression of the frontal horn of the right lateral ventricle. Negative for midline shift or downward herniation. 4. Transthoracic echocardiogram on 08/24/17. Family Development Specialist's conclusion: Global left ventricular wall motion and contractility are within normal limits. The estimated ejection fraction is 55% to 60%. The right ventricular global systolic function is normal. Interarterial septum appears intact without evidence of shunting. Bubble study is negative. The aortic valve leaflets are mildly thickened with normal function. There is a trace of mild regurgitation, trace tricuspid regurgitation. Unable to estimate the right ventricular systolic pressure. Compared with prior echo of 07/15/14, stable. 5. Head and neck CTA on 08/24/17. Radiologist's impression: Subacute nonhemorrhagic infarct of the right basal ganglia. Atherosclerosis. No internal carotid artery stenosis by NASCET criteria. No aneurysm, vascular malformation, occlusion or stenosis of the visualized intracranial circulation. DISCHARGE MEDICATIONS: [place] Medication: Plavix 75 mg oral daily. Changed Home Medication: Atorvastatin increased from 20 mg daily to 40 mg oral daily. Continued Home Medications: 1. Candesartan 8 mg oral daily. 2. Calcium carbonate 500 mg oral twice daily. 3. Simethicone 180 mg daily as needed for constipation. 4. Multivitamin 1 tablet oral daily. 5. Singulair 10 mg oral daily. 6. Diltiazem 120 mg oral daily. 7. Albuterol HFA inhaler 1 puff inhalation every 4 hours as needed for shortness of breath or wheeze. 8. Spiriva 1 capsule inhalation daily. 9. Symbicort 160/4.5 two puffs inhalation twice daily. Discontinued Home Medications: None. HISTORY OF PRESENT ILLNESS/HOSPITAL COURSE: Ms. Greenberg is a 76-year-old female with past medical history significant for hypertension, hyperlipidemia, mild carotid artery disease, coronary artery disease, asthma, history of breast cancer, status post mastectomy, GERD, and inguinal hernia repair, who presented to the emergency room with concerns of unusual behavior per her . According to Mr. Greenberg, the patient who is typically a type A personality has become very laid back and not concerned about the usual things she worries about such as how her house was arranged. This initially started potentially 10 days prior to presentation, but got worse over the 3 days leading up to her arrival. There were no evidence of focal weakness or other abnormalities. Patient's called Dr. Medrano and Dr. Delgado's office and they were recommended to go to the emergency room for further evaluation of her symptoms. While in the emergency room, Ms. Greenberg had a CT of her head showing concern for right frontal lobe possible stroke or less likely a mass with vasogenic edema. She had unremarkable labs. She was mildly tachycardic and hypertensive with systolic blood pressures in the 170s in the emergency room. She had a negative chest x-ray. Hospitalists were asked to evaluate the patient for admission. While in the hospital, patient was seen in consultation by Dr. Little Goodwin. She underwent an MRI of her brain showing a right frontal lobe infarct. She had a head and neck CTA showing atherosclerosis and no internal carotid artery stenosis. No other abnormalities. She had no focal neuro deficits. Fasting lipids revealed elevated LDL at 87, cholesterol of 160. Her statin was increased from 20 to 40 mg. She was also noted to be slightly hypertensive with systolics up to the 170s, but mostly in the 120s to 150s. At the time of her discharge, it was noted that she was taking lower blood pressure medications than her home doses and this was adjusted for discharge. She had an echo without significant findings. She was started on Plavix. Ms. Greenberg is stable for discharge. Vital signs are as follows: Temperature 98.6, heart rate 56, respiratory rate 16, O2 sat 96% on room air, blood pressure 125/70. DISCHARGE PLAN: Ms. Greenberg will be discharged to home. ACTIVITY: As tolerated. DIET: She should be on a heart healthy diet. In regards to her right frontal CVA, she has a followup appointment with Dr. Goodwin on 09/27/17 at 10 a.m. She has been started on Plavix daily and her atorvastatin has been increased to 40 mg daily. She resumed her other usual home medications. She has a followup appointment with her primary care provider , Dr. Rory Medrano, on 09/06/17 at 10:[address] [facility] location. The patient has been asked to return in the emergency room for any shortness of breath, chest discomfort or signs of strokes such as one-sided weakness, slurred speech, facial drooping, or any other behavioral changes that are unexplained. This is a summarized report of a complex medical history and hospital stay. For further details, please see the entire medical record. TIME SPENT: Time for this discharge was approximately 50 minutes, greater than half of that was spent with the patient discussing discharge plans and instructions. CONDITION ON DISCHARGE: Stable. Reviewed by RADHA MORELOS 08/29/17 1858 [id number]/[facility] #: [id number] [place]
== END 2017-08-25 17:46 | disposition home or self-care (01) | DRG 66 ==
LOC: ED 16:52 → MEDTELE 20:22
PROVIDERS: ADMIT Hospitalist; ATTEND Internal Medicine
DX: I63.22 Cerebral infarction due to unspecified occlusion or stenosis of basilar artery (principal); J44.9 Chronic obstructive pulmonary disease, unspecified; I11.9 Hypertensive heart disease without heart failure; I25.10 Atherosclerotic heart disease of native coronary artery without angina pectoris; E78.5 Hyperlipidemia, unspecified; K21.9 Gastro-esophageal reflux disease without esophagitis; I65.29 Occlusion and stenosis of unspecified carotid artery; Z85.3 Personal history of malignant neoplasm of breast; Z79.899 Other long term (current) drug therapy; Z88.1 Allergy status to other antibiotic agents; Z88.5 Allergy status to narcotic agent; Z88.2 Allergy status to sulfonamides; Z88.8 Allergy status to other drugs, medicaments and biological substances
CPT/HCPCS: 36415; 70450; 70496; 70498; 70553; 71045; 80053; 80061; 83036; 83605; 84484; 85025; 93005; 93306; 94640; 94760; 99284; A9270-GY; A9579; J1644; Q9967

== ENCOUNTER 2018-04-15 11:32 | Observation (INO) | payer MEDICARE, OTHER ==
--- NOTE | 2018-04-15 11:57 | ED ---
Dizziness - HPI Summary HPI Summary: This patient is a 77 year old F presenting to [facility] accompanied by her with a chief complaint of dizziness since 08:30. Symptoms aggravated by movement. Symptoms alleviated by lying down. Patient reports vomiting, room- spinning, head feels full, nausea, elevated BP, and BARNES. Patient denies fever, head pain, CP, SOB, or slurred speech. Woke up and felt like she couldnt stand up to go to the bathroom. She also wobbled and almost fell several times. She has not felt like this before. She says it feels like she will fall and cannot walk, when asked to describe her dizziness. In the room, she says the room- spinning is better but her head feels full. Her helped her down the stairs, which she has not needed before. Pt has a 30 day heart monitor on from her elevated guard. Pt reports that this does not feel like the TIA she had in July. Pt took a Plavix this morning, as usual. PMHX TIA in July, blindness in the left eye. No PMHx diabetes. SHX lives near [facility]. RX Plavix. Allergies to Amoxicillin, Azithromycin, Clavulanic acid, Oxycodone, and Sulfa. Rx Singulair 10, Plavix 75, Cardia xt 120, Candesarten 4mg, Atorvastatin 40. Vital signs while in room: HR 51 bpm, BP 194/97. O2 sat 97%. NIH score of 1, Due to preexisting eye deficit of light perception only. Dr. Galicia was in the room at 11:48 Home Medications Medication Instructions Recorded Confirmed Type Candesartan (NF) [Atacand (NF)] 8 mg PO DAILY 04/22/13 08/25/17 History Albuterol HFA INHALER* [Ventolin 1 puff INH Q4H PRN 08/23/17 08/23/17 History HFA Inhaler*] Budesonide/Formote 160/4.5(NF) 2 puff INH BID 08/23/17 08/23/17 History [Symbicort 160/4.5 (NF)] Calcium Carbonate CHEW TAB* [Tums*] 500 mg PO BID 08/23/17 08/23/17 History Montelukast Sodium TAB* [Singulair 10 mg PO DAILY 08/23/17 08/23/17 History 10 MG TAB*] Multivitamins/Minerals TAB* 1 tab PO DAILY 08/23/17 08/23/17 History [Theragran/minerals TAB*] Simethicone [Gas Relief] 180 mg PO DAILY PRN 08/23/17 08/23/17 History Tiotropium CAP.INH* [Spiriva 1 cap.inh INH DAILY 08/23/17 08/23/17 History CAP.INH*] dilTIAZem HCl [Diltiazem 24Hr ER] 120 mg PO DAILY 08/23/17 08/23/17 History Atorvastatin* [Lipitor 40 MG*] 40 mg PO 1700 #30 tab 08/25/17 Rx Clopidogrel TAB* [Plavix TAB*] 75 mg PO DAILY #30 tab 08/25/17 Rx - History Of Current Complaint Chief Complaint: EDDizziness Stated Complaint: DIZZY Time Seen by Provider: 04/15/18 11:48 Hx Obtained From: Patient, Family/Auto Accessories Installer - Last Known Well Date: 829 Onset/Duration: Still Present - has gotten better Timing: Constant Severity Initially: Moderate Severity Currently: Moderate Character: Room Spinning, Dizzy Aggravating Factor(s): Exertion, Position Change Alleviating Factor(s): Lying Down Associated Signs And Symptoms: Positive: Nausea, Vomiting, Unsteady Gait. Negative: Chest Pain, SOB, Fever, Slurred Speech Related History: Similar Episode/Dx as - TIA - Risk Factors CVA Risk Factor: Prior CVA/TIA - Allergies/Home Medications Allergies/Adverse Reactions: Allergies Allergy/AdvReac Type Severity Reaction Status Date / Time amoxicillin [From Augmentin] Allergy Unknown Verified 08/24/17 19:27 Reaction Details azithromycin Allergy Unknown Verified 08/24/17 19:27 Reaction Details clavulanic acid Allergy Unknown Verified 08/24/17 19:27 [From Augmentin] Reaction Details oxycodone AdvReac GI Upset Verified 08/24/17 19:27 Sulfa (Sulfonamide AdvReac Nausea Verified 08/24/17 19:27 Antibiotics) Home Medications: Home Medications Atorvastatin* [Lipitor 40 MG*] 40 mg PO 1700 04/15/18 [History Confirmed ] Candesartan Cilexetil 4 mg PO DAILY 04/15/18 [History Confirmed 04/15/18] Clopidogrel TAB* [Plavix TAB*] 75 mg PO DAILY 04/15/18 [History Confirmed ] Diltiazem XR EXTEND Releas(NF) [Cartia XR (NF)] 120 mg PO DAILY 04/15/18 [ History Confirmed 04/15/18] Montelukast Sodium TAB* [Singulair 5 mg TAB*] 5 mg PO DAILY 04/15/18 [History Confirmed 04/15/18] PMH/Surg Hx/FS Hx/Imm Hx Previously Healthy: No Endocrine/Hematology History: Reports: Hx Anticoagulant Therapy - plavix Denies: Hx Diabetes Cardiovascular History: Reports: Hx Hypercholesterolemia, Hx Hypertension - CONTROL WITH MEDICATION Denies: Hx Congestive Heart Failure, Hx Pacemaker/ICD Respiratory History: Reports: Hx Asthma - USE INHALER GI History: Reports: Hx Gall Bladder Disease, Hx Gastroesophageal Reflux Disease - ACID REFLUX-OCCASIONAL TUMS AND ZANTAC Denies: Other GI Disorders History: Denies: Hx Renal Disease, Other Problems/Disorders Sensory History: Reports: Hx Cataracts - surgery, Hx Contacts or Glasses - reading Denies: Hx Hearing Aid Opthamlomology History: Reports: Hx Cataracts - surgery, Hx Contacts or Glasses - reading Neurological History: Reports: Hx Transient Ischemic Attacks (TIA) - 07/2017, on plavix Psychiatric History: Denies: Hx Panic Disorder - Cancer History Cancer Type, 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 [place] Inguinal her[place] [id number] LEFT [place]GUINAL [place] [facility] [place] Anesthesia Reactions: No - Immunization History Date of Tetanus Vaccine: 2009 Infectious Disease History: No Infectious Disease History: Denies: History Other Infectious Disease, Traveled Outside the [place] in Last 30 Days - Family History Known Family History: Positive: Hypertension - Social History Lives: With Family Alcohol Use: Weekly Substance Use Type: Reports: None Hx Tobacco Use: No Smoking Status (MU): Never Smoked Tobacco Review of Systems Negative: Fever Negative: Chest Pain Negative: Shortness Of Breath Positive: Vomiting, Nausea Musculoskeletal: Negative Skin: Negative Positive: Headache. Negative: Slurred Speech All Other Systems Reviewed And Are Negative: Yes Physical Exam - Summary Physical Exam Summary: Appearance: Well-appearing, moderate pain distress, well-nourished Skin: Warm, color reflects adequate perfusion, dry Head: Normal Head/Face inspection, atraumatic Eyes: Conjunctiva clear, right pupil reactive 2mm, left eye light perception vision only (pre-existing) ENT: Normal inspection Neck: Supple, no nodes, no JVD Respiratory: Lungs clear, normal breath sounds, no respiratory distress Cardio: RRR, No murmur, pulses normal, brisk capillary refill Abdomen: Soft, nontender Bowel sounds: Present Musculoskeletal: Strength Intact/ROM intact, no calf tenderness, no edema. Psychological: Normal Neuro: A&O x3, CN II-XII intact (except light perception only in left eye), motor function 5/5, sensation intact, cerebellar normal GCS: 15 NIH score of 1 due to preexisting eye deficit of light perception only. Dr. aGlicia was in the room at 11:48. Triage Information Reviewed: Yes Vital Signs On Initial Exam: Initial Vitals Temp Pulse Resp BP Pulse Ox 97.2 F 59 16 129/81 97 04/15/18 11:36 04/15/18 11:36 04/15/18 11:36 04/15/18 11:36 04/15/18 11:36 Vital Signs Reviewed: Yes Diagnostics - Vital Signs Vital Signs Temp Pulse Resp BP Pulse Ox 04/15/18 11:36 97.2 F 59 16 129/81 97 - Laboratory Result Diagrams: 04/16/18 05:17 04/16/18 05:17 Lab Statement: Any lab studies that have been ordered have been reviewed, and results considered in the medical decision making process. - Radiology CXR Radiology Interpretation Completed By: Radiologist - CT Brain CT Interpretation Completed By: Radiologist - 1. CHRONIC RIGHT BASAL GANGLIA INFARCT. 2. CHRONIC SMALL VESSEL ISCHEMIC CHANGES. 3. NO ACUTE INTRACRANIAL PATHOLOGY. ED physician has reviewed this report - EKG 11:53 Cardiac Rate: Bradycardia - 52 bpm EKG Rhythm: Sinus Bradycardia ST Segment: Non-Specific Ectopy: PVCs - 2 EKG Interpretation: nml AV/IV CT and nml axis. Ectopy: [address] EKG Comparison: No Significant Change - c/w 08/23/17 National Institutes Of Health - NIH Scale Level of Consciousness: Alert/Keenly Responsive Ask Patient the Month and His/Her Age: Both Correct Ask Pt to Open/Close Eyes and Fusing Furnace Loader/Release Non-Paretic Hand: Both Correctly Best Gaze (Only Horizontal Eye Movement): Normal Visual Field Testing: Partial Hemianopia - left eye with light perception vision only, not new deficit Facial Paresis-Pt to Smile & Close Eyes or Grimace Symmetry: Normal/Symmetrical Motor Function - Right Arm: No Drift-Holds 10 Seconds Motor Function - Left Arm: No Drift-Holds 10 Seconds Motor Function - Right Leg: No Drift-Holds 10 Seconds Motor Function - Left Leg: No Drift-Holds 10 Seconds Limb Ataxia-Must be out of Proportion to Weakness Present: Absent Sensory (Use Pinprick to Test Arms/Legs/Trunk/Face): Normal Best Language (Describe Picture, Name Items): No Aphasia Dysarthria (Read Several Words): Normal Extinction and Inattention: No Abnormality Total Score: 1 Re-Evaluation - Re-Evaluation First Eval Re-Evaluation Time: 13:48 Change: Improved Comment: Pt was sleeping for the last 20 minutes. Pt was informed that her test results are all negative for any new problems. The pt feels less anxious than when she first arrived. Dr. Delgado is supposed to evaluate the heart monitor in about 2 weeks, she wanted to see if anything abnormal was happening at night. Pt reports that her dizziness is improved while in the ED. HR 54 bpm, BP 172/88, O2 96% Second Eval Re-Evaluation Time: 14:36 Change: Unchanged Comment: Discussed admission, remains bradycardic Dizzy Course/Dx - Course Course Of Treatment: This patient is a 77 year old F presenting to [facility] accompanied by her with a chief complaint of dizziness since 08:30. Symptoms aggravated by movement. Symptoms alleviated by lying down. Patient reports vomiting, room-spinning, head feels full, nausea, elevated BP, and BARNES. Patient denies fever, head pain, CP, SOB, or slurred speech. At 12:58 Patient had episode of PVCs but no Afib. An EKG at 11:53 reveals nml AV/IV CT and nml axis. Ectopy: [address] CXR reveals, per radiologist, HYPERINFLATION. NO ACTIVE CARDIOPULMONARY DISEASE. Brain CT reveals 1. CHRONIC RIGHT BASAL GANGLIA INFARCT. 2. CHRONIC SMALL VESSEL ISCHEMIC CHANGES. 3. NO ACUTE INTRACRANIAL PATHOLOGY. ED physician has reviewed this radiology report. In the ED course the patient was given IV fluids. Labs show minimal abnormalities. We discussed patient care with Dr. Horton and he recommended admission to [facility]. Patient will be admitted. The patient is agreeable with this plan. - Diagnoses Differential Diagnosis/HQI/PQRI: Benign Paroxysmal Positional Vertigo, Coronary Artery Disease, CVA, Hypovolemia, Labyrinthitis, Medication Reaction, Metabolic Abnormality, Myocardial Infarction, Transient Ischemic Attack Provider Diagnoses: Orthostatic hypotension, Dizziness, Bradycardia - Provider Notifications Discussed Care Of Patient With: Murray Maria Time Discussed With Above Provider: 14:05 - No futher imaging needed, do not need to call a stroke Discharge - Sign-Out/Discharge Documenting (check all that apply): Patient Departure - admitted - Discharge Plan Condition: Fair Disposition: ADMITTED TO [facility] - Billing Disposition and Condition Condition: FAIR Disposition: Admitted to [facility] - Attestation Statements Document Initiated by Scribe: Yes Documenting Scribe: Dakotah Landaverde Provider For Whom Scribe is Documenting (Include Credential): Lise Galicia MD Scribe Attestation: Dakotah Burciaga, scribed for Lise Galicia MD on 04/18/18 at 2237. Scribe Documentation Reviewed: Yes Provider Attestation: The documentation as recorded by the Dakotah degroot accurately reflects the service I personally performed and the decisions made by wa, Lise Galicia MD Consult Consult: Neida, the pharmacist, recommends that the patient take her own Candesarten at this time, 14:10. Consult with Dr. Horton at 14:13. The patient will be admitted to [facility]. Consult Dr. Maria, no acute neurologic event based on hx provided by me. Dr. Delgado, no acute cardiac abnormality.
--- NOTE | 2018-04-15 12:18 | RAD ---
HISTORY: dizziness, on plavix, hx TIA, COMPARISONS: August 23, 2017 TECHNIQUE: Multiple contiguous axial CT scans were obtained of the head without intravenous contrast. FINDINGS: HEMORRHAGE/INFARCT: There is no hemorrhage or acute infarct. MASSES/SHIFT: There is no mass or shift. EXTRA-AXIAL SPACES: There are no extra-axial fluid collections. SULCI AND VENTRICLES: The sulci and ventricles are normal in size and position for the patient's stated age. CEREBRUM: There is encephalomalacia involving the right caudate consistent with the sequela of the infarct noted on the August 23, 2012 examination. There is hypoattenuation of the periventricular and subcortical white matter.. BRAINSTEM: There are no focal parenchymal abnormalities. CEREBELLUM: There are no focal parenchymal abnormalities. VESSELS: There is calcification of the cavernous segments of the internal carotid arteries bilaterally and of the distal vertebral arteries bilaterally. PARANASAL SINUSES: The paranasal sinuses are clear. ORBITS: The patient is status post scleral banding on the left. BONES AND SOFT TISSUE: No bone or soft tissue abnormalities are noted. OTHER: None IMPRESSION: 1. CHRONIC RIGHT BASAL GANGLIA INFARCT. 2. CHRONIC SMALL VESSEL ISCHEMIC CHANGES. 3. NO ACUTE INTRACRANIAL PATHOLOGY.
[2018-04-15 12:39] LABS: ABS Basophils 0.1 10^3/ul (0-0.2); ABS Eosinophils 0 10^3/ul (0-0.6); ABS Monocytes 0.5 10^3/ul (0-0.8); ABS Neutrophils 8.3 10^3/ul (1.5-7.7); ABS Nucleated RBC 0 10^3/ul; Eosinophil % 0.4 % (0-6); Hematocrit 46 % (35-47); Hemoglobin 15.4 g/dl (12.0-16.0); Lymphocyte % 9.7 % (25-47); Mean Corpuscular HGB Conc 33 g/dl (31-36); Mean Corpuscular Hemoglobin 32 pg (27-31); Mean Corpuscular Volume 96 fL (80-97); Mean Platelet Volume 8.5 um3 (7.4-10.4); Nucleated Red Blood Cells % 0; Platelet Count 222 10^3/ul (150-450); Red Blood Count 4.82 10^6/ul (4.00-5.40); Red Cell Distribution Width 14 % (10.5-15); White Blood Count 9.8 10^3/ul (3.5-10.8)
--- NOTE | 2018-04-15 12:40 | RAD ---
HISTORY: dizzy COMPARISONS: August 23, 2017 VIEWS: 1: frontal AP view of the chest at 12:18 PM FINDINGS: LINES AND TUBES: None. CARDIOMEDIASTINAL SILHOUETTE: The cardiomediastinal silhouette is normal for portable technique. PLEURA: The costophrenic angles are sharp. No pleural abnormalities are noted. LUNG PARENCHYMA: There is hyperinflation. ABDOMEN: The upper abdomen is clear. There is no subphrenic gas. BONES AND SOFT TISSUES: No bone or soft tissue abnormalities are noted. IMPRESSION: HYPERINFLATION. NO ACTIVE CARDIOPULMONARY DISEASE.
[2018-04-15 12:58] LABS: EGFR Non-African American 77.1 (>60)
[2018-04-15] MEDS ORDERED: NS 0.9% 1000 ML* 2,000 ML IV SCH (14:00)
[2018-04-15] MEDS ORDERED: Meclizine TAB* 12.5 MG PO ONE (14:32)
[2018-04-15] MEDS ORDERED: Al Hydrox/Mg Hydrox/Simet LIQ* 30 ML UDC PO PRN (15:22)
[2018-04-15] MEDS ORDERED: Acetaminophen TAB* 325 MG PO PRN (15:22)
[2018-04-15] MEDS ORDERED: NS 0.9% 1000 ML* 1,000 ML IV SCH (15:26)
[2018-04-15] MEDS ORDERED: hydrALAZINE IV* 20 MG/ML VIAL IV SLOW PU PRN (16:33)
[2018-04-15] MEDS ORDERED: Losartan TAB* 25 MG PO ONE (16:34)
[2018-04-15] MEDS ORDERED: Atorvastatin* 40 MG TAB PO SCH (17:00)
[2018-04-15] MEDS: NS 0.9% 1000 ML* 1,000 ML IV SCH (17:02)
[2018-04-15] MEDS: Diltiazem CD CAP* 120 MG PO SCH (17:08)
--- NOTE | 2018-04-15 21:06 | HP ---
CC: Dr. Medrano; Dr. Delgado * HISTORY AND PHYSICAL: DATE OF ADMISSION: 04/15/18 PRIMARY CARE PROVIDER: Dr. Medrano. CHIEF COMPLAINT: Dizziness. HISTORY OF PRESENT ILLNESS: Namrata Greenberg is a 77-year-old female with history of ischemic CVA at the beginning of the year of 2017 for which she had been on Plavix and from which she has no residual symptoms, who presented today complaining of an episode of dizziness. The patient stated that she got up in the middle of the night to go to the bathroom and she started feeling dizzy. She stated that the dizziness she describes as feeling unsteady on her feet and more so when she is walking. The "dizziness" would resolve whenever she would be stationary. She also vomited once approximately an hour after dizziness onset. She stated that she had been in her usual state of health in the past several days. She went out for dinner with her yesterday. She denies anything out of ordinary happening recently. She has not had any recent illnesses and no recent travel. Currently, it appears that although the patient still feels a little bit unsteady on her feet, her "dizziness" resolved. She is going to be placed on overnight observation with diagnosis of dizziness. PAST MEDICAL HISTORY: 1. History of ischemic CVA. The patient currently has several weeks of Holter monitoring as outpatient prescribed by Dr. Delgado to rule out arrhythmia as a cause of her CVA. 2. History of breast cancer. 3. Hypertension. 4. Hyperlipidemia. 5. History of bilateral inguinal hernia repairs. 6. Asthma. CURRENT MEDICATIONS: Include: 1. Singulair 5 mg daily. 2. Diltiazem CD 120 mg daily. 3. Plavix 75 mg daily. 4. Candesartan 4 mg daily. 5. Lipitor 40 mg daily. ALLERGIES: SULFA gets her nauseated, AZITHROMYCIN, unknown reaction; AUGMENTIN , nausea; OXYCODONE, GI upset; AMOXICILLIN, nausea. FAMILY HISTORY: Father had an GA at the age of 68. Brother had history of heart disease and stent in his 50s. Mother in her 70s secondary to CVA. SOCIAL HISTORY: The patient denies any tobacco, alcohol, or drug use. She lives with her who is her surrogate. REVIEW OF SYSTEMS: The patient, at baseline, stated that she ambulates without the use of a cane or a walker. She is fully independent with her ADLs. The patient denies any GI or urinary symptoms. All the remaining 12 systems were reviewed with the patient and were otherwise negative. PHYSICAL EXAMINATION GENERAL: The patient is a very pleasant 77-year-old female, who is in no acute distress. Alert, awake, and oriented x3. VITAL SIGNS: Blood pressure of 155/99. Please note that the patient's blood pressure was 191/86 while sitting and while standing, it went down to 179/92. The patient's heart rate had remained the same in the 50s. Temperature of 97.2 , respiratory rate 17, oxygen saturation 96% on room air. HEENT: Head: Atraumatic, normocephalic. Eyes: Pupils are equal, reactive to light and accommodation. Oropharynx clear. Mucosa moist. NECK: Supple. No JVD, no bruits bilaterally. RESPIRATORY: Clear to auscultation bilaterally. CARDIOVASCULAR: Regular rate and rhythm. No murmurs. ABDOMEN: Soft, nontender. Bowel sounds are present in all 4 quadrants. EXTREMITIES: There is no edema. Pulses are +2 bilaterally. No clubbing or cyanosis. NEUROLOGIC: On neuro evaluation, speech is clear. Cranial nerves II through XII grossly intact. Motor strength is 5/5 bilaterally. The patient has no visual field deficit. There is no diplopia on our evaluation that the patient noted. There is no nystagmus. The patient's gait is rather wide and she prefers to hold on to things when walking but there is no ataxia noted and she is able to ambulate almost independently at this point. [id number] is noted to be intact bilaterally. Sensation is grossly intact. PSYCHIATRIC: On psychiatric evaluation, the patient is pleasant and cooperative with evaluation, oriented x3 with no evidence of anxiety or depression. DIAGNOSTIC STUDIES/LAB DATA: White blood cell count 9.8, hemoglobin 15.4, hematocrit 46, and platelets . Sodium was 140, potassium 4.1, chloride 106, carbon dioxide 28, BUN 9, creatinine 0.73. Liver function tests were unremarkable. Troponin of 0. TSH was 1.48. The patient's brain CT, impression: "Chronic right basal ganglia infarct. Chronic small vessel ischemic changes. No acute intracranial pathology." The patient's chest x-ray, impression: " hyperventilation and no active cardiopulmonary disease." The patient's EKG shows sinus bradycardia with PACs with a heart rate of 52 beats per minute. Apart from PVCs, otherwise the EKG is similar to the one obtained from July 2017. ASSESSMENT AND PLAN: 1. An episode of unsteady gait and dizziness, appeared to be positional. The patient also is orthostatic. I suspect the patient has symptomatic orthostatic hypotension. She does appear slightly hypovolemic on exam. The patient is going to be receiving a liter of intravenous fluid as a bolus in the emergency room and then we will continue 75 mL an hour. The patient is going to be continued on telemetry, neuro checks, but I do not believe transient ischemic attack/cerebrovascular accident is likely at this point. Nevertheless, we will continue telemetry observation and neuro checks as mentioned above. The patient is going to be continued on Plavix. 2. In regards to the patient's hypertension, her candesartan that is not on formulary is going to be switched to losartan. The patient is going to be continued also on her Cartia XT; she already took today. She has significant bradycardia, but that had been chronic with this patient. I will continue her Cartia during her hospital stay despite her bradycardia. 3. For DVT prophylaxis, the patient is going to be placed on heparin subcutaneously. 4. The patient's code status is full and her surrogate is her . TIME SPENT: Approximately 60 minutes was spent on the admission of this patient , more than half of that time was spent [id number] with the patient during the interview and physical exam. [id number]/[facility] #: [id number] LEXIS
[2018-04-15] MEDS: Docusate CAP* 100 MG PO SCH (21:15)
[2018-04-15] MEDS: Heparin VIAL(*) 5000 UNITS/ML VIAL (FIVE THOUSAND) SUBCUT SCH (21:16)
[2018-04-15 23:46] LABS: Urine Appearance Clear; Urine Blood Negative (Negative); Urine Color Straw; Urine Ketones Negative (Negative); Urine Protein Negative (Negative); Urine Specific Gravity 1.005 (1.010-1.030); Urine Urobilinogen Negative (Negative)
[2018-04-16 05:34] LABS: ABS Basophils 0.1 10^3/ul (0-0.2); ABS Eosinophils 0.2 10^3/ul (0-0.6); ABS Lymphocytes 1.8 10^3/ul (1.0-4.8); ABS Monocytes 0.7 10^3/ul (0-0.8); ABS Neutrophils 4.4 10^3/ul (1.5-7.7); ABS Nucleated RBC 0 10^3/ul; Eosinophil % 2.3 % (0-6); Hematocrit 42 % (35-47); Hemoglobin 13.9 g/dl (12.0-16.0); Lymphocyte % 25.5 % (25-47); Mean Corpuscular HGB Conc 33 g/dl (31-36); Mean Corpuscular Hemoglobin 32 pg (27-31); Mean Corpuscular Volume 96 fL (80-97); Mean Platelet Volume 8.4 um3 (7.4-10.4); Nucleated Red Blood Cells % 0; Platelet Count 195 10^3/ul (150-450); Red Blood Count 4.35 10^6/ul (4.00-5.40); Red Cell Distribution Width 14 % (10.5-15); White Blood Count 7.2 10^3/ul (3.5-10.8)
[2018-04-16 05:51] LABS: EGFR Non-African American 91.4 (>60)
[2018-04-16] MEDS: Heparin VIAL(*) 5000 UNITS/ML VIAL (FIVE THOUSAND) SUBCUT SCH (06:25)
[2018-04-16] MEDS: NS 0.9% 1000 ML* 1,000 ML IV SCH (06:31)
[2018-04-16] MEDS: Diltiazem CD CAP* 120 MG PO SCH (07:50)
[2018-04-16] MEDS: Docusate CAP* 100 MG PO SCH (07:50)
[2018-04-16] MEDS ORDERED: Clopidogrel TAB* 75 MG PO SCH (09:00)
[2018-04-16] MEDS ORDERED: Diltiazem CD CAP* 120 MG PO SCH (09:00)
[2018-04-16] MEDS ORDERED: Losartan TAB* 25 MG PO SCH (09:00)
[2018-04-16 12:14] VITALS: BP 150/64
--- NOTE | 2018-04-16 22:14 | DS ---
CC: Dr. Medrano; Dr. Delgado * DISCHARGE SUMMARY: DATE OF ADMISSION: 04/15/18 DATE OF DISCHARGE: 04/16/18 PRIMARY CARE PROVIDER: Dr. Medrano. DISCHARGE DIAGNOSIS: Dizziness likely due to orthostasis. SECONDARY DIAGNOSES: 1. Hypertension. 2. History of ischemic cerebrovascular accident at the beginning of 2017, currently undergoing Holter monitoring to rule out cardiac arrhythmias as prescribed by Dr. Delgado. 3. History of breast cancer. 4. Hyperlipidemia. 5. History of bilateral inguinal hernia repairs. 6. Asthma. MEDICATIONS AT DISCHARGE: Unchanged from admission and include: 1. Singulair 5 mg daily. 2. Diltiazem CD 120 mg daily. 3. Plavix 75 mg daily. 4. Candesartan 4 mg daily. 5. Lipitor 40 mg daily. LABORATORY DATA AND STUDIES PERFORMED DURING THE HOSPITAL STAY: Included: On , white blood cell count of 7.2, hemoglobin of 13.9, hematocrit of 42, platelets of 195. Sodium is 140, potassium 3.9, chloride 110, carbon dioxide 46 , BUN 7, creatinine 0.63. Liver function tests were unremarkable on admission. Serial troponins were below 1. Cholesterol profile from , cholesterol profile showed triglycerides of 85, cholesterol of 135, LDL of 52, and HDL of 66. TSH was 1.48. HOSPITALIZATION COURSE: Namrata Greenberg is a 77-year-old female who appears to have ischemia CVA in July 2017 who presented to the hospital complaining of dizziness. The patient is noted to be hypertensive, but her blood pressure was down by over 20 points when standing up, noted for positive orthostasis. The patient appears to be slightly dehydrated at admission. By the time of admission, at that point, her dizziness had already resolved. She was placed on overnight observation on cafeteria monitor bed with no arrhythmias noted. The patient's neuro checks throughout her hospital stay were unremarkable. On the day of discharge, she ambulated with physical therapy without any problems. Please note that the patient was hypertensive during her hospital stay with systolic pressures in the 150s to 170s. Nevertheless, due to her positive orthostasis, her blood pressure medications were not adjusted at discharge. The patient is recommended to follow up with her primary care provider at that point to be reevaluated for possibility of adjustment of her blood pressure medications. The patient had used meclizine a couple of times and she thought that it helped her initially and she is going to have it prescribed at discharge at 25 mg every 8 hours as needed. The patient was advised to stay well hydrated. At discharge, the patient is advised to follow up with her primary care provider in approximately 4 to [address] Delgado in approximately couple of weeks. Physical exam at discharge is unchanged from admission. Please note that this is a short summary of the patient's hospital stay. Please refer to further medical records for details. [id number]/[facility] #: [id number] [facility]
== END 2018-04-16 12:58 | disposition home or self-care (01) ==
LOC: ED 11:32 → MEDTELE 14:59
PROVIDERS: ADMIT Internal Medicine; ATTEND Internal Medicine
DX: R42 Dizziness and giddiness (principal); I10 Essential (primary) hypertension; Z86.73 Personal history of transient ischemic attack (TIA), and cerebral infarction without residual deficits; Z85.3 Personal history of malignant neoplasm of breast; E78.5 Hyperlipidemia, unspecified; Z98.890 Other specified postprocedural states; J45.909 Unspecified asthma, uncomplicated; R11.2 Nausea with vomiting, unspecified; Z88.0 Allergy status to penicillin; Z79.01 Long term (current) use of anticoagulants; R00.1 Bradycardia, unspecified
CPT/HCPCS: 36415; 70450; 71045; 80048; 80053; 80061; 80307; 80320; 81003; 82550; 83605; 83735; 83880; 84443; 84484; 85025; 85730; 86140; 87040; 93005; 96374; 96375; 99284; A9270-GY; G0378; G0480; G8978-GP-CI; G8979-GP-CI; G8980-GP-CI; J0360; J1644

== ENCOUNTER 2024-05-11 16:53 | Inpatient (IN) ==
[2024-05-12 00:16] LABS: ABS Eosinophils 0.1 10^3/uL (0.0-0.5); ABS Lymphocytes 1.2 10^3/uL (1.0-4.8); ABS Monocytes 0.9 10^3/uL (0.0-0.9); ABS Neutrophils 8.3 10^3/uL (1.5-7.6); ABS Nucleated RBC 0.01 10^3/ul; Eosinophil % 0.6 %; Hematocrit 42.2 % (35-45); Hemoglobin 14.2 g/dL (11.5-14.3); Lymphocyte % 11.5 %; Mean Corpuscular Hemoglobin 32.1 pg (27-33); Mean Corpuscular Hgb Conc 33.6 g/dL (31-36); Mean Corpuscular Volume 95.7 fL (80-97); Mean Platelet Volume 9.5 fL (7.5-11.2); Nucleated Red Blood Cells % 0.1 %/100WBC (0.0-0.8); Platelet Count 188 10^3/uL (150-450); Red Blood Count 4.41 10^6/uL (3.63-4.92); Red Cell Distribution Width 14.7 % (12-17); White Blood Count 10.4 10^3/uL (3.8-11.8)
[2024-05-12] MEDS: Acetaminophen IV 1 GM/100ML 1,000 MG/100 ML BAG IV ONE (00:22)
[2024-05-12 00:24] LABS: INR 1.3 (0.85-1.14)
[2024-05-12 00:47] LABS: Albumin 3.9 g/dL (3.2-5.2); Albumin/Globulin Ratio 1.7 (1-3); Calcium 9.3 mg/dL (8.6-10.3); Creatinine, Serum 0.65 mg/dL (0.51-0.95); Globulin 2.3 g/dL (2-4); Potassium 4.4 mmol/L (3.5-5.0); Total Bilirubin 0.6 mg/dL (0.2-1.0); Total Protein 6.2 g/dL (6.4-8.9); eGFR CKD-EPI 86.8 (>60)
[2024-05-12] MEDS ORDERED: Lactated Ringers 1000 ml BAG 1,000 ML IV SCH (04:00)
[2024-05-12 05:50] LABS: ABS Eosinophils 0.1 10^3/uL (0.0-0.5); ABS Lymphocytes 1.2 10^3/uL (1.0-4.8); ABS Monocytes 0.9 10^3/uL (0.0-0.9); ABS Neutrophils 6.2 10^3/uL (1.5-7.6); Eosinophil % 1.2 %; Hematocrit 35.9 % (35-45); Hemoglobin 12.1 g/dL (11.5-14.3); Lymphocyte % 14.3 %; Mean Corpuscular Hemoglobin 32.4 pg (27-33); Mean Corpuscular Hgb Conc 33.8 g/dL (31-36); Mean Corpuscular Volume 95.7 fL (80-97); Mean Platelet Volume 9.4 fL (7.5-11.2); Platelet Count 154 10^3/uL (150-450); Red Blood Count 3.75 10^6/uL (3.63-4.92); Red Cell Distribution Width 14.2 % (12-17); White Blood Count 8.5 10^3/uL (3.8-11.8)
[2024-05-12] MEDS: NS 0.9% 1000 ml BAG 1,000 ML IV SCH (06:42)
[2024-05-12 06:43] LABS: Calcium 6.4 mg/dL (8.6-10.3); Creatinine, Serum 0.35 mg/dL (0.51-0.95); Potassium 2.9 mmol/L (3.5-5.0); eGFR CKD-EPI 100.7 (>60)
[2024-05-12 10:30] LABS: Calcium 8.8 mg/dL (8.6-10.3); Creatinine, Serum 0.62 mg/dL (0.51-0.95); Magnesium 1.9 mg/dL (1.9-2.7); Potassium 4.2 mmol/L (3.5-5.0); eGFR CKD-EPI 87.8 (>60)
[2024-05-12] MEDS ORDERED: Morphine 2 MG/ML SYRINGE IV PRN (14:53)
[2024-05-12] MEDS: Albuterol HFA INHALER 8 gm MDI INH PRN (17:10)
[2024-05-12] MEDS: hydrALAZINE 20 mg/ml 1 ML Vial IV IV SLOW PU ONE (22:43)
[2024-05-12] MEDS: hydrALAZINE 20 mg/ml 1 ML Vial IV IV SLOW PU PRN (23:58)
[2024-05-13 01:52] LABS: High Sensitivity Troponin 1 Hr 575 pg/mL (<15)
[2024-05-13] MEDS ORDERED: Sulfur Hexaflouride MICROSPHR 25 MG VIAL IV PRN (02:01)
[2024-05-13] MEDS ORDERED: Heparin 5000 UNITS/ML 1 mL VIAL IV SCH (03:00)
[2024-05-13 03:02] LABS: ABS Basophils 0.1 10^3/uL (0.0-0.1); ABS Lymphocytes 0.7 10^3/uL (1.0-4.8); ABS Monocytes 1.2 10^3/uL (0.0-0.9); ABS Neutrophils 16.4 10^3/uL (1.5-7.6); ABS Nucleated RBC 0.01 10^3/ul; Eosinophil % 0.2 %; Hematocrit 43.9 % (35-45); Hemoglobin 14.3 g/dL (11.5-14.3); Lymphocyte % 3.9 %; Mean Corpuscular Hemoglobin 31.5 pg (27-33); Mean Corpuscular Hgb Conc 32.6 g/dL (31-36); Mean Corpuscular Volume 96.5 fL (80-97); Mean Platelet Volume 9.9 fL (7.5-11.2); Platelet Count 181 10^3/uL (150-450); Red Blood Count 4.55 10^6/uL (3.63-4.92); Red Cell Distribution Width 14.5 % (12-17); White Blood Count 18.5 10^3/uL (3.8-11.8)
[2024-05-13 03:26] LABS: High Sensitivity Troponin 3 Hr 1343 pg/mL (<15)
[2024-05-13] MEDS: Heparin DRIP 25,000 UNITS BAG 25,000 UNITS/250 ML BAG IV SCH (03:44)
[2024-05-13 04:26] LABS: Calcium 9.3 mg/dL (8.6-10.3); Creatinine, Serum 0.5 mg/dL (0.51-0.95); Magnesium 1.9 mg/dL (1.9-2.7); Potassium 3.7 mmol/L (3.5-5.0); eGFR CKD-EPI 92.4 (>60)
[2024-05-13 08:32] LABS: High Sensitivity Troponin 3 Hr 2116 pg/mL (<15)
[2024-05-13] MEDS: Magnesium Sulfate IV 1GM/100ML 1 GM/100 ML BAG IV ONE (10:24)
[2024-05-13] MEDS: Potassium Chlor 20 meq TAB.ER PO ONE (10:25)
[2024-05-13] MEDS: KCL 20 MEQ/100 ML IVPREMIX 20 MEQ/100 ML BAG IV SCH (11:18)
[2024-05-13] MEDS: Pantoprazole VIAL 40 MG VIAL IV SCH (12:02)
[2024-05-14 05:38] LABS: ABS Eosinophils 0.1 10^3/uL (0.0-0.5); ABS Lymphocytes 1.2 10^3/uL (1.0-4.8); ABS Monocytes 1.1 10^3/uL (0.0-0.9); ABS Neutrophils 7.6 10^3/uL (1.5-7.6); Eosinophil % 1.1 %; Hematocrit 41.7 % (35-45); Hemoglobin 13.8 g/dL (11.5-14.3); Lymphocyte % 11.5 %; Mean Corpuscular Hemoglobin 31.7 pg (27-33); Mean Corpuscular Hgb Conc 33.1 g/dL (31-36); Mean Corpuscular Volume 95.6 fL (80-97); Mean Platelet Volume 10.1 fL (7.5-11.2); Platelet Count 175 10^3/uL (150-450); Red Blood Count 4.36 10^6/uL (3.63-4.92); Red Cell Distribution Width 14.8 % (12-17)
[2024-05-14 10:11] LABS: Calcium 9.1 mg/dL (8.6-10.3); Creatinine, Serum 0.54 mg/dL (0.51-0.95); Potassium 4.5 mmol/L (3.5-5.0); eGFR CKD-EPI 90.7 (>60)
[2024-05-14 10:55] LABS: High Sensitivity Troponin 1 Hr 593 pg/mL (<15)
[2024-05-15 06:02] LABS: ABS Basophils 0.1 10^3/uL (0.0-0.1); ABS Eosinophils 0.3 10^3/uL (0.0-0.5); ABS Lymphocytes 1.5 10^3/uL (1.0-4.8); ABS Monocytes 1.3 10^3/uL (0.0-0.9); ABS Neutrophils 7.2 10^3/uL (1.5-7.6); Eosinophil % 2.8 %; Hematocrit 40.3 % (35-45); Hemoglobin 13.4 g/dL (11.5-14.3); Lymphocyte % 14.9 %; Mean Corpuscular Hgb Conc 33.3 g/dL (31-36); Mean Corpuscular Volume 96.2 fL (80-97); Mean Platelet Volume 10.3 fL (7.5-11.2); Platelet Count 183 10^3/uL (150-450); Red Blood Count 4.19 10^6/uL (3.63-4.92); Red Cell Distribution Width 14.9 % (12-17); White Blood Count 10.3 10^3/uL (3.8-11.8)
[2024-05-15 06:55] LABS: Creatinine, Serum 0.54 mg/dL (0.51-0.95); eGFR CKD-EPI 90.7 (>60)
[2024-05-15] MEDS: Albuterol/Ipratropium NEB.SOL (2.5/0.5 MG) 3 ML NEB.SOLN INH ONE (14:08)
[2024-05-15 14:34] LABS: PCO2 Arterial 53 mmHg (35-45); PO2 Arterial 112 mmHg (80-100)
[2024-05-15] MEDS ORDERED: Albuterol/Ipratropium NEB.SOL (2.5/0.5 MG) 3 ML NEB.SOLN INH PRN (19:40)
[2024-05-15] MEDS: Mometasone/Formoter 200/5 MDI INH SCH (21:04)
[2024-05-16 06:26] LABS: Hematocrit 38.4 % (35-45); Hemoglobin 12.8 g/dL (11.5-14.3); Mean Corpuscular Hgb Conc 33.4 g/dL (31-36); Mean Corpuscular Volume 95.9 fL (80-97); Mean Platelet Volume 10.1 fL (7.5-11.2); Platelet Count 183 10^3/uL (150-450); Red Blood Count 4.01 10^6/uL (3.63-4.92); Red Cell Distribution Width 14.7 % (12-17); White Blood Count 8.3 10^3/uL (3.8-11.8)
[2024-05-16 06:44] LABS: Calcium 9.3 mg/dL (8.6-10.3); Creatinine, Serum 0.6 mg/dL (0.51-0.95); Potassium 4.2 mmol/L (3.5-5.0); eGFR CKD-EPI 88.5 (>60)
[2024-05-16] MEDS: NS 0.9% 1000 ml BAG 1,000 ML IV SCH (10:54)
[2024-05-17] MEDS: Sodium Phosphate ADULT ENEMA 133 ML BTL PR ONE (15:09)
[2024-05-17] MEDS: Polyethylene Glycol 3350 17 GM PACKET PO SCH (21:03)
[2024-05-18 09:39] LABS: Rapid COVID-19 Molecular Undetected (Undetected)
[2024-05-18 09:55] VITALS: BP 125/83
== END 2024-05-18 12:09 | DRG 562 ==
LOC: ED 16:53 → EDHOLD 16:53 → SSU 05-12 07:30 → MEDTELE 05-12 07:45 → SUATTDRO 05-14 15:56
PROVIDERS: ADMIT Internal Medicine; ATTEND Internal Medicine